=== PATIENT | female | born 1990 | race Two or more races ===

== ENCOUNTER 2018-04-09 18:41 | Emergency (ER) | payer OTHER ==
[2018-04-09] MEDS ORDERED: ACETAMINOPHEN 325 MG TABLET PO ONE (18:54)
[2018-04-09] MEDS ORDERED: KETOROLAC TROMETHAMINE 60 MG/2 ML SDV IM ONE (18:54)
[2018-04-09] MEDS ORDERED: KETOROLAC TROMETHAMINE INJ/PF 30 MG/1 ML SDV IV ONE (18:55)
[2018-04-09] MEDS ORDERED: ONDANSETRON HCL INJ/PF 4 MG/2 ML SDV IV ONE (18:55)
[2018-04-09 19:42] LABS: ABSOLUTE LYMPHOCYTES (AUTO) 1.9 10^3/uL (0.5-4.7); ABSOLUTE MONOCYTES (AUTO) 0.5 10^3/uL (0.1-1.4); ABSOLUTE NEUT (AUTO) 14.1 10^3/uL (1.7-8.2); BASOPHILS % (AUTO) 0.2 % (0-2); EOSINOPHILS % (AUTO) 0.2 % (0-6); HEMATOCRIT 44.8 % (36.0-47.0); HEMOGLOBIN 14.7 g/dL (12.0-15.5); LYMPHOCYTES % (AUTO) 11.5 % (13-45); MEAN CORPUSCULAR HEMOGLOBIN 28.2 pg (27.0-33.4); MEAN CORPUSCULAR HGB CONC 32.8 g/dL (32.0-36.0); MEAN CORPUSCULAR VOLUME 86 fl (80-97); MONOCYTES % (AUTO) 3.2 % (3-13); PLATELET COUNT 260 10^3/uL (150-450); RED BLOOD COUNT 5.21 10^6/uL (3.72-5.28); RED CELL DISTRIBUTION WIDTH 12.5 % (11.5-14.0); SEGMENTED NEUTROPHILS % (AUTO) 84.9 % (42-78); TOTAL CELLS COUNTED % (AUTO) 100 %; WHITE BLOOD COUNT 16.6 10^3/uL (4.0-10.5)
[2018-04-09 19:58] LABS: ANION GAP 14 (5-19); BLOOD UREA NITROGEN 15 mg/dL (7-20); CALCIUM 9.9 mg/dL (8.4-10.2); CARBON DIOXIDE 24 mmol/L (22-30); CHLORIDE 103 mmol/L (98-107); GLUCOSE 96 mg/dL (75-110); SODIUM 141.2 mmol/L (137-145)
--- NOTE | 2018-04-09 20:10 | ER Document Report ---
ED General - General Chief Complaint: Flank Pain Stated Complaint: ABDOMINAL PAIN Time Seen by Provider: 04/09/18 18:53 Notes: Patient is a 27-year-old female with a past medical history of an appendectomy, no chronic medical problems who presents with 12 hours of progressively worsening right lower abdominal and adnexal pain. Patient describes it as a progressive worsening dull, aching, stabbing pain to the area. She has tried [id number]-bab-[id number] pain medications without any improvement. Nothing worsens the symptoms. She states that she was seen at [facility] emergency department earlier today, diagnosed with a urinary tract infection and started on Bactrim but she does not believe that this is a urinary tract infection stating that she has had these in the past and they never felt like this. She states that she does have a history of ovarian cysts but has never had one rupture in the past. She denies any fever, vomiting or constitutional symptoms. No vaginal bleeding or discharge. TRAVEL OUTSIDE OF THE [place] IN LAST 30 DAYS: No - Related Data Allergies/Adverse Reactions: No Known Allergies Allergy (Verified 04/09/18 18:59) Past Medical History - General Information source: Patient - Social History Smoking Status: Current Every Day Smoker Chew tobacco use (# tins/day): No Frequency of alcohol use: weekends Drug Abuse: None Lives with: Alone Family History: Reviewed & Not Pertinent Patient has suicidal ideation: No Patient has homicidal ideation: No Renal/ Medical History: Denies: Hx Peritoneal Dialysis - Immunizations Hx Diphtheria, Pertussis, Tetanus Vaccination: Yes Review of Systems - Review of Systems Notes: Constitutional: Negative for fever. HENT: Negative for sore throat. Eyes: Negative for visual changes. Cardiovascular: Negative for chest pain. Respiratory: Negative for shortness of breath. Gastrointestinal: Positive for abdominal pain and nausea Genitourinary: Negative for dysuria. Musculoskeletal: Negative for back pain. Skin: Negative for rash. Neurological: Negative for headaches, weakness or numbness. 10 point ROS negative except as marked above and in HPI. Physical Exam - Vital signs Vitals: Temp Pulse Resp BP Pulse Ox 98.6 F 60 18 139/90 H 100 04/09/18 18:52 04/09/18 18:52 04/09/18 18:52 04/09/18 18:52 04/09/18 18:52 Interpretation: Normal Notes: PHYSICAL EXAMINATION: GENERAL: Appears mildly uncomfortable but no acute distress HEAD: Atraumatic, normocephalic. EYES: Pupils equal round and reactive to light, extraocular movements intact, sclera anicteric, conjunctiva are normal. ENT: nares patent, oropharynx clear without exudates. Moist mucous membranes. NECK: Normal range of motion, supple without lymphadenopathy LUNGS: Breath sounds clear to auscultation bilaterally and equal. No wheezes rales or rhonchi. HEART: Regular rate and rhythm without murmurs ABDOMEN: Soft, right lower abdominal tenderness to palpation, most focal to the right adnexa. Otherwise no localized areas of tenderness. normoactive bowel sounds. No guarding, no rebound. No masses appreciated. EXTREMITIES: Normal range of motion, no pitting or edema. No cyanosis. NEUROLOGICAL: No focal neurological deficits. Moves all extremities spontaneously and on command. PSYCH: Normal mood, normal affect. SKIN: Warm, Dry, normal turgor, no rashes or lesions noted. Course - Re-evaluation Re-evalutation: 04/09/18 19:56 Patient presents with 12 hours of progressively worsening right adnexal as well as right lower abdominal pain. On examination she has mild tenderness the right adnexa as well as the right lower quadrant without rebound or guarding. No additional areas of localized tenderness. She is status post appendectomy. She has a known history of ovarian cyst but has never had a rupture in the past. She is not clinically present in a manner that would be consistent with acute ovarian torsion she does not appear to be in any significant distress. She was seen at [facility] earlier today, diagnosed with a urinary tract infection but states that she has never felt like this is prior UTIs and thinks there is something more serious ongoing. She has no actual CVA tenderness to suggest an acute pyelonephritis. Will proceed with a transvaginal ultrasound to evaluate for possible ruptured ovarian cyst, obtain labs, and reassess the patient. 04/09/18 20:59 Transvaginal ultrasound does show a 3.3 cm cyst on the right which would account for patient's pain and is consistent with her clinical presentation. The remainder of the patient's laboratory's are otherwise unremarkable with the exception of a mild leukocytosis which is nonspecific. Patient's pain is overall improved. She has tolerated oral intake. At this time will discharge with return precautions and follow-up recommendations. Verbal discharge instructions given a the bedside and opportunity for questions given. Medication warnings reviewed. Patient is in agreement with this plan and has verbalized understanding of return precautions and the need for primary care follow-up in the next 24-72 hours. - Vital Signs Vital signs: Temp Pulse Resp BP Pulse Ox 98.6 F 60 18 139/90 H 100 04/09/18 18:52 04/09/18 18:52 04/09/18 18:52 04/09/18 18:52 04/09/18 18:52 - Laboratory Result Diagrams: 04/09/18 19:30 04/09/18 19:30 Laboratory results interpreted by me: 04/09/18 04/09/18 19:30 19:30 WBC 16.6 H Seg Neutrophils % 84.9 H Lymphocytes % 11.5 L Absolute Neutrophils 14.1 H Urine Ketones 80 H Urine Ascorbic Acid 40 H - Diagnostic Test Radiology reviewed: Reports reviewed Discharge - Discharge Clinical Impression: Right lower quadrant abdominal pain, Right ovarian cyst Condition: Good Additional Instructions: Today been diagnosed with an ovarian cyst. These typically occur in the middle of your typical menstrual cycle. The pain should last for no more than 3-4 days. For your pain: Take ibuprofen 600 mg and acetaminophen 1000 mg every 6 hours together as needed for pain. If this does not control your pain you may take 15 mg of oral morphine every 4 hours as needed. Please be very careful about using the oral morphine and only use this for severe pain. Please follow- up with your DIRECTOR E LEARNING regarding today's visit. If you have multiple recurrent cyst that continue to cause you pain like this, you may require hormone therapy such as oral control pills to prevent recurrence of the same. Return if you develop fever, nausea, vomiting, worsening abdominal pain, pass out, or have any other symptoms that are worrisome to you. Prescriptions: Morphine Sulfate [Morphine Ir 15 mg Tablet] 15 mg PO Q4HP PRN #12 tablet PRN Reason:
[2018-04-09 20:11] LABS: APPEARANCE,URINE CLEAR; BILIRUBIN,URINE NEGATIVE (NEGATIVE); COLOR,URINE YELLOW; GLUCOSE, URINE NEGATIVE (NEGATIVE); KETONES,URINE 80 mg/dL (NEGATIVE); LEUKOCYTE ESTERASE,URINE NEGATIVE (NEGATIVE); NITRITE,URINE NEGATIVE (NEGATIVE); PROTEIN,URINE NEGATIVE (NEGATIVE); URINE SPECIFIC GRAVITY 1.032; UROBILINOGEN,URINE NEGATIVE mg/dL (<2.0)
--- NOTE | 2018-04-09 20:17 | RADIOLOGY REPORT (SQ) ---
EXAM DESCRIPTION: U/S NON OB PEL W/DOPPLER COMPLETED DATE/TIME: 04/09/2018 8:03 pm REASON FOR STUDY: right adnexal pain COMPARISON: None. TECHNIQUE: Dynamic and static grayscale images acquired of the pelvis via transabdominal approach an d recorded on PACS. Additional selected color Doppler and spectral images recorded. LIMITATIONS: None. FINDINGS: UTERUS: Contour normal. No mass. ENDOMETRIAL STRIPE: IUD present in expected position. No focal or generalized thickening. No masses. CERVIX: No nabothian cysts. RIGHT OVARY AND DOPPLER: Normal size. 3.3 cm simple cyst. Normal arterial vascular flow without evid ence for torsion. LEFT OVARY AND DOPPLER: Normal size. No worrisome masses. Normal arterial vascular flow without evide nce for torsion. FREE FLUID: Trace. OTHER: No other significant finding. MEASUREMENTS: UTERUS: 9.8 x 4.9 x 4.1 cm ENDOMETRIAL STRIPE: 3 mm RIGHT OVARY: 5.2 x 4.8 x 3.4 cm LEFT OVARY: 1.8 x 3.3 x 2.4 cm IMPRESSION: 3.3 cm right ovarian cyst. No evidence for torsion. IUD in expected position. TECHNICAL DOCUMENTATION: JOB ID: [id number] [id number] 2010 [employer]- All Rights Reserved Reading location - IP/workstation name: Member Desk
[2018-04-09] MEDS ORDERED: MORPHINE SULFATE IR 15 MG TABLET PO ONE (21:00)
[2018-04-09 21:25] VITALS: BP 124/88
== END 2018-04-09 21:23 | disposition home or self-care (01) ==
LOC: ER 18:41
DX: N83.201 Unspecified ovarian cyst, right side (principal); R10.31 Right lower quadrant pain; R11.0 Nausea; Z98.890 Other specified postprocedural states; F17.200 Nicotine dependence, unspecified, uncomplicated
CPT/HCPCS: 99284; 96374; 96375; 36415; 87086; 85025; 80048; 81001; 76856; 93976; J1885; J2405